=== PATIENT | male | born 1985 | race Caucasian/White ===

== ENCOUNTER 2016-11-04 09:15 | Emergency (ER) | payer BC ==
[2016-11-04 09:18] VITALS: BP 152/92
--- NOTE | 2016-11-04 09:29 | UC ---
Skin Complaint HPI - HPI Summary HPI Summary: scattered itching vesicles after exposure to plant in the enviroment while weed eating---took six days of prednisone with relief then sx returned - History of Current Complaint Chief Complaint: UCRash Time Seen by Provider: 11/04/16 09:21 Stated Complaint: RASH Hx Obtained From: Patient Onset/Duration: Gradual Onset, Lasting Days, Still Present Skin Exposure Onset/Duration: Days Ago Timing: Constant Onset Severity: Moderate Current Severity: Mild Location: Diffuse Character: Pruritus, Redness, Raised Aggravating: Nothing Alleviating: Nothing Associated Signs & Symptoms: Positive: Rash Related History: Possible Reaction to: Environmental Exposure - Allergy/Home Medications Allergies/Adverse Reactions: Allergies Allergy/AdvReac Type Severity Reaction Status Date / Time Codeine Allergy GI Upset Verified 11/04/16 09:18 Review of Systems Constitutional: Negative Skin: Rash - scattered vesicular rash Eyes: Negative ENT: Negative Respiratory: Negative Cardiovascular: Negative Gastrointestinal: Negative Genitourinary: Negative Motor: Negative Neurovascular: Negative Musculoskeletal: Negative Neurological: Negative Psychological: Negative All Other Systems Reviewed And Are Negative: Yes PMH/Surg Hx/FS Hx/Imm Hx Previously Healthy: No Cardiovascular History: Hypertension Psychological History: Depression - Surgical History Surgical History: None - Family History Known Family History: Positive: Hypertension Negative: Diabetes - Social History Occupation: Employed Full-time Lives: With Family Alcohol Use: Weekly Alcohol Amount: Beer Substance Use Type: None Smoking Status (MU): Never Smoked Tobacco Have You Smoked in the Last Year: No - Immunization History Most Recent Tetanus Shot: 2002 Physical Exam Triage Information Reviewed: Yes Appearance: Well-Appearing, No Pain Distress, Well-Nourished Vital Signs: Initial Vital Signs Temp 97.7 F 11/04/16 09:16 Pulse 61 11/04/16 09:16 Resp 18 11/04/16 09:16 BP 152/92 11/04/16 09:16 Pulse Ox 100 11/04/16 09:16 Vital Signs Reviewed: Yes Eye Exam: Normal Eyes: Positive: Conjunctiva Clear ENT Exam: Normal ENT: Positive: Normal ENT inspection, Hearing grossly normal. Negative: Nasal congestion, Nasal drainage, Trismus, Muffled/hoarse voice Dental Exam: Normal Neck exam: Normal Neck: Positive: Supple, Nontender Respiratory Exam: Normal Respiratory: Positive: Chest non-tender, No respiratory distress, No accessory muscle use Cardiovascular Exam: Normal Cardiovascular: Positive: RRR, Pulses Normal, Brisk Capillary Refill Musculoskeletal Exam: Normal Musculoskeletal: Positive: Strength Intact, ROM Intact, No Edema Neurological Exam: Normal Neurological: Positive: Alert, Muscle Tone Normal Psychological Exam: Normal Psychological: Positive: Normal Response To Family Skin: Positive: rashes - scattered itchy vesicular rash Course/Dx - Course Course Of Treatment: prednisone or steroid cream, benadryl, follow with pcp - Differential Diagnoses - Skin Complaint Differential Diagnoses: Contact Dermatitis, Impetigo, Local Allergic Reaction, Poison Summer, Poison [place] - Diagnoses Provider Diagnoses: topical response to enviromental allergen, highblood pressure in poor control Discharge - Discharge Plan Condition: Stable Disposition: HOME Prescriptions: Clobetasol 0.05% OINT* 1 applic TOPICAL BID #45 gm predniSONE TAB* [Deltasone TAB*] 20 mg PO DAILY #30 tab Patient Education Materials: Hypertension (ED), Prednisone (By mouth), Contact Dermatitis (ED), Poison Summer (ED) Referrals: Gerald Zamora MD [Primary Care Provider] - 2 Weeks
== END 2016-11-04 09:40 | disposition home or self-care (01) ==
LOC: UCEAST 09:15
DX: L23.7 Allergic contact dermatitis due to plants, except food (principal); Z88.5 Allergy status to narcotic agent; I10 Essential (primary) hypertension; F32.9 Major depressive disorder, single episode, unspecified
CPT/HCPCS: 99212; G0463

== ENCOUNTER → 2018-08-13 00:18 | Emergency (ER) | payer BC ==
[~2018-08-13 00:18] MED LIST: Ondansetron ODT TAB* 4 MG SL ONE
--- NOTE | 2018-08-13 00:40 | ED ---
GI/ HPI - HPI Summary HPI Summary: A 33 y/o M presents to ED c/o n/v/d onset a few days ago. His pain is rated 0 out of 10. Patient states his was ill with similar symptoms last week. He took Pepto to no relief. He denies alleviating and aggravating factors. 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 - History of Current Complaint Chief Complaint: EDNauseaVomitDiarrh Time Seen by Provider: 08/13/18 00:37 Stated Complaint: NAUSEA PER PT Hx Obtained From: Patient Onset/Duration: Started Days Ago, Still Present Timing: Constant, Lasting Days Severity: Mild Current Severity: Moderate Pain Intensity: 0 - out of 10 Associated Signs and Symptoms: Positive: Negative Aggravating Factor(s): Nothing Alleviating Factor(s): Nothing - Allergy/Home Medications Allergies/Adverse Reactions: Allergies Allergy/AdvReac Type Severity Reaction Status Date / Time codeine Allergy GI Upset Verified 08/13/18 00:22 PMH/Surg Hx/FS Hx/Imm Hx Previously Healthy: Yes Endocrine/Hematology History: Denies: Hx Diabetes Cardiovascular History: Reports: Hx Hypertension Respiratory History: Denies: Hx Asthma Infectious Disease History: No Infectious Disease History: Denies: Traveled Outside the [place] in Last 30 Days - Family History Known Family History: Positive: Hypertension Negative: Diabetes - Social History Occupation: Employed Full-time Lives: With Family Alcohol Use: Weekly Alcohol Amount: Beer Hx Substance Use: No Substance Use Type: Reports: None Hx Tobacco Use: No Smoking Status (MU): Never Smoked Tobacco Have You Smoked in the Last Year: No Review of Systems Negative: Fever Positive: Vomiting, Diarrhea, Nausea All Other Systems Reviewed And Are Negative: Yes Physical Exam - Summary Physical Exam Summary: Appearance: Well-appearing, Well-nourished, lying in bed comfortably Skin: Warm, dry, no obvious rash Eyes: sclera anicteric, no conjunctival pallor ENT: mucous membranes moist, pharynx appears normal Neck: Supple, nontender Respiratory: Clear to auscultation, no signs of respiratory distress Cardiovascular: Normal S1, S2. No murmurs. Normal distal pulses in tibial and radial bilaterally. Abdomen: Soft, nontender, normal active bowel sounds present Musculoskeletal: Normal, Strength/ROM Intact Neurological: A&Ox3, awake and alert, mentation is normal, speech is fluent and appropriate Psychiatric: affect is normal, does not appear anxious or depressed Triage Information Reviewed: Yes Vital Signs On Initial Exam: Initial Vitals Temp Pulse Resp BP Pulse Ox 97.3 F 72 16 153/106 97 08/13/18 00:19 08/13/18 00:19 08/13/18 00:19 08/13/18 00:19 08/13/18 00:19 Vital Signs Reviewed: Yes Diagnostics - Vital Signs Vital Signs Temp Pulse Resp BP Pulse Ox 08/13/18 00:19 97.3 F 72 16 153/106 97 - Laboratory Lab Statement: Any lab studies that have been ordered have been reviewed, and results considered in the medical decision making process. GIGU Course/Dx - Course Course Of Treatment: Patient is a 33 y/o M presenting with n/v/d a few days ago. His pain is rated 0 out of 10. Patient states his was ill with similar symptoms last week. 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 - Diagnoses Provider Diagnoses: Gastroenteritis Discharge - Sign-Out/Discharge Documenting (check all that apply): Patient Departure - D/C Patient Received Moderate/Deep Sedation with Procedure: No - Discharge Plan Condition: Stable Disposition: HOME Prescriptions: Ondansetron ODT TAB* [Zofran 4 MG Odt TAB*] 8 mg PO Q6H PRN #15 tab.odt PRN Reason: Nausea Patient Education Materials: Gastroenteritis (ED) Referrals: Liang Mccallum MD [Primary Care Provider] - If Needed - Billing Disposition and Condition Condition: STABLE Disposition: Home - Attestation Statements Document Initiated by Scribe: Yes Documenting Scribe: Tray Abdullahi Provider For Whom Pema is Documenting (Include Credential): Dr. Justin Whiting MD Scribe Attestation: Tray Oglesby scribed for Dr. Justin Whiting MD on 08/13/18 at 0334. Scribe Documentation Reviewed: Yes Provider Attestation: The documentation as recorded by the Tray gale accurately reflects the service I personally performed and the decisions made by me, Dr. Justin Whiting MD Status of Scribe Document: Viewed
[2018-08-13 02:07] VITALS: BP 149/107
== END | disposition home or self-care (01) ==
LOC: ED 00:18
DX: K52.9 Noninfective gastroenteritis and colitis, unspecified (principal); I10 Essential (primary) hypertension
CPT/HCPCS: 99282; A9270-GY

== ENCOUNTER 2019-05-13 09:59 | Emergency (ER) | payer BC ==
[2019-05-13 11:14] VITALS: BP 147/91
--- NOTE | 2019-05-13 11:43 | UC ---
Throat Pain/Nasal Adam HPI - HPI Summary HPI Summary: 33yo male presenting with nasal congestion, PND, and "sinus headaches" x 5-6 days. Patient also states that he woke up with chills, "feeling feverish," and migraine this morning. States hot shower resolved migraine and congestion some and that the chills have subsided. Normal appetite. Taking dayquil for symptom relief. 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 - History of Current Complaint Chief Complaint: UCRespiratory Stated Complaint: SINUSES Hx Obtained From: Patient Pain Intensity: 0 - Allergies/Home Medications Allergies/Adverse Reactions: Allergies Allergy/AdvReac Type Severity Reaction Status Date / Time codeine Allergy GI Upset Verified 05/13/19 11:08 Home Medications: Home Medications Citalopram TAB* [Celexa TAB*] 20 mg PO DAILY 03/18/12 [History Confirmed ] [id number] (Nf) [Excedrin Extra Strength 250-250-65 mg (NF)] 2 tab PO Q6H PRN 05/13/19 [History Confirmed 05/13/19] Amoxicillin/Clavulanate TAB* [Augmentin TAB 875*] 875 mg PO BID #10 tab [Rx] Doxylam/PE/Dm/Acetaminophen/GG [Vicks Dayquil/Nyquil Julia] 30 ml PO Q6H PRN [History Confirmed 05/13/19] PMH/Surg Hx/FS Hx/Imm Hx Previously Healthy: Yes - Surgical History Surgical History: None - Family History Known Family History: Positive: Hypertension Negative: Diabetes - Social History Alcohol Use: Weekly Alcohol Amount: Beer Substance Use Type: None Smoking Status (MU): Never Smoked Tobacco Have You Smoked in the Last Year: No - Immunization History Most Recent Tetanus Shot: 10/13/2012 Review of Systems All Other Systems Reviewed And Are Negative: Yes Constitutional: Positive: Fever, Chills ENT: Positive: Nasal Discharge - PND, Sinus Congestion, Sinus Pain/Tenderness Respiratory: Positive: Negative. Negative: Shortness Of Breath, Cough Cardiovascular: Positive: Negative Gastrointestinal: Positive: Negative Musculoskeletal: Positive: Negative Neurological/Mental Status: Positive: Headache Physical Exam - Summary Physical Exam Summary: Vital Signs Reviewed: Yes A+Ox3, no distress Eyes: Conjunctiva Clear ENT: Hearing grossly normal, TM x 2 clear, +PND, +nasal congestion, +maxillary sinus tenderness, moist, uvula midline, no exudate, no erythema Neck: Positive: Supple Respiratory: Positive: No respiratory distress, No accessory muscle use + CTA throughout no w/r Cardiovascular: RRR nl s1, s2 no m/r Musculoskeletal Exam: CHUN x 4 without difficulty Neurological: Positive: Aler Psychological: Positive: age appropriate behavior Skin: Positive: no rash, no ecchymosis Vital Signs: Initial Vital Signs Temp 99.1 F 05/13/19 11:07 Pulse 90 05/13/19 11:07 Resp 18 05/13/19 11:07 BP 147/91 05/13/19 11:07 Pulse Ox 99 05/13/19 11:07 Throat Pain/Nasal Course/Dx - Course Course Of Treatment: Negative rapid flu. Edcuated patient on viral vs bacterial illness. Patient prefers to take antibiotics at this time. I treated with augmentin for 5 days and instructed to continue with symptomatic treatment. Patient voiced understanding and agreed with treatment plan. - Differential Dx/Diagnosis Differential Diagnosis/HQI/PQRI: Influenza, Sinusitis, URI Provider Diagnosis: Sinusitis, acute Discharge ED - Sign-Out/Discharge Documenting (check all that apply): Patient Departure All imaging exams completed and their final reports reviewed: No Studies - Discharge Plan Condition: Stable Disposition: HOME Prescriptions: Amoxicillin/Clavulanate TAB* [Augmentin TAB 875*] 875 mg PO BID #10 tab Patient Education Materials: Rhinosinusitis (ED) Referrals: Liang Mccallum MD [Primary Care Provider] - If Needed Additional Instructions: Take Augmentin for treatment of your sinusitis. You may also add Flonase for symptom relief. Continue with over the counter pain medications as directed. Follow up with your primary care provider if symptoms worsen or persist. - Billing Disposition and Condition Condition: STABLE Disposition: Home - Attestation Statements Provider Attestation: This patient was not seen by me. I was available for consult. Chart reviewed. [email or web address]
[2019-05-13 12:08] LABS: Influenza A Molecular Negative (Negative); Influenza B Molecular Negative (Negative)
== END 2019-05-13 12:24 | disposition home or self-care (01) ==
LOC: UCCORT 09:59
DX: J01.90 Acute sinusitis, unspecified (principal); Z88.5 Allergy status to narcotic agent
CPT/HCPCS: 99212; G0463